=== PATIENT | female | born 1980 | race Caucasian/White ===

== ENCOUNTER → 2019-01-22 11:41 | Outpatient (CLI) | payer BC, SELFPAY ==
--- NOTE | 2019-01-22 12:30 | CT_ITS ---
STUDY: CT ABDOMEN AND PELVIS WITH CONTRAST REASON FOR EXAM: Female, 38 years old. Lower abdominal pain x5 days RADIATION DOSAGE (If Supplied By Facility): CTDIvol = ( 9.89 ) mGy, DLP = ( 289.74 ) mGycm TECHNIQUE: Transaxial images were obtained from the dome of the diaphragm to the symphysis pubis with oral contrast. 100 IV/Oral Isovue 300 was administered. Sagittal and coronal images were reconstructed. Individualized dose optimization techniques were used for this CT. COMPARISON: None. FINDINGS: The visualized lung bases are unremarkable. The visualized portions of the heart are within normal limits. Normal liver. Normal gallbladder and extrahepatic biliary system. Normal spleen. Normal pancreas. Normal bilateral adrenal glands. Normal right kidney. Normal left kidney. Normal visualized stomach. Majority of the small intestine is unremarkable, there is however abnormal thickening of the terminal ileum suggesting a focal colitis. This could be infectious, or inflammatory, Crohn's cannot be excluded. Normal colon. The appendix is visualized and appears normal. Appendix best seen on axial images 60 through 64. Normal abdominal aorta. Normal inferior vena cava. Normal retroperitoneum. Normal urinary bladder. Normal-appearing uterus. Bilateral ovarian cysts are noted, these cannot be accurately evaluated with CT. There is also dependent free fluid in the cul-de-sac Normal abdominal wall. Normal osseous structures. CT/Abdomen/Pelvis WITH Contrast IMPRESSION: Nonspecific thickening of the terminal ileum suggests a focal colitis. Bilateral ovarian cysts, these cannot be accurately evaluated with CT. Consider dedicated pelvic ultrasound for further evaluation there is free fluid in the dependent pelvis Normal appendix visualized. No suspicious solid organ abnormality Electronically Signed: Freddy Kirk MD at 15:22 EDT , Service support ,
[2019-01-22 12:35] LABS: Absolute Lymphocyte Count 1.06 X10^3/ul (0.83-4.51); Eosinophil# 0.05 X10^3/uL; Eosinophils% 0.7 % (0-5); Hematocrit 34.9 % (37-47); Hemoglobin 11.4 g/dl (12.0-15.0); Lymphocyte # 1.06 X10^3/ul (4.0); Lymphocyte % 15.4 % (19-41); Mean Corp Hgb Conc 32.7 g/gl (32-36); Mean Corpuscular Hgb 25.4 pg (27.0-32.0); Mean Corpuscular Volume 77.7 fL (81-99); Mean Platelet Vol. 8.7 fl (6.2-12.0); Monocyte# 0.75 X10^3/uL; Monocyte% 10.9 % (0-10); Neutrophil # 5.01 X10^3/uL (2.7-7.7); Neutrophil % 72.9 % (47-70); Platelet Count 251 K/mm3 (150-450); RBC Distribution Width CV 14.3 % (11.6-14.6); RBC Distribution Width SD 39.7 fl (35.1-43.9); Red Blood Count 4.49 M/mm3 (4.2-5.4); White Blood Count 6.9 K/mm3 (4.4-11.0)
[2019-01-22 12:38] LABS: POSITIVE COUNT NO; POSITIVE DIFFERENTIAL NO; POSITIVE MORPHOLOGY NO
== END ==
PROVIDERS: Family Provider Family Medicine; PCP Family Medicine; Referring Provider Family Medicine; Visit Provider Family Medicine
DX: R10.9 Unspecified abdominal pain (principal)
CPT/HCPCS: 36415; 74177; 85025; Q9967

== ENCOUNTER → 2019-02-26 13:47 | Outpatient (CLI) | payer BC, SELFPAY ==
--- NOTE | 2019-02-26 13:50 | US_ITS ---
STUDY: ULTRASOUND OF THE FEMALE PELVIS - COMPLETE REASON FOR EXAM: Female, 38 years old. Ovarian cysts TECHNIQUE: Transabdominal ultrasound images were obtained of the pelvis TECHNICAL QUALITY: Adequate. COMPARISON: None. FINDINGS: The uterus measures 7.3 x 5.6 x 3.9 cm. Normal uterine cervix. The endometrium measures 9 mm in thickness. There is no demonstrated myometrial mass. The right ovary measures 3.5 x 2.6 x 1.7 cm. There is no right ovarian cyst or ovarian mass visualized. There is no visualized right adnexal mass or complex lesion. There is normal arterial and normal venous vascularity. The left ovary measures 3.6 x 2.7 x 1.7 cm. There is no left ovarian cyst or ovarian mass visualized. There is no visualized left adnexal mass or complex lesion. There is normal arterial and normal venous vascularity. There is no fluid in the cul-de-sac. US/Pelvic (Non ) IMPRESSION: Normal female pelvis. Electronically Signed: Juan J Walsh, at 17:10 EDT Tel , Service support ,
== END ==
PROVIDERS: Family Provider Family Medicine; PCP Family Medicine; Referring Provider Family Medicine; Visit Provider Family Medicine
DX: N83.201 Unspecified ovarian cyst, right side (principal); N83.202 Unspecified ovarian cyst, left side
CPT/HCPCS: 76856

== ENCOUNTER → 2019-04-10 07:22 | Outpatient (CLI) | payer BC, SELFPAY ==
[2019-04-10 10:18] LABS: Erythrocyte Sedimentation Rate 7 mm/hr (0-20)
[2019-04-10 10:20] LABS: Hematocrit 37.9 % (37-47); Mean Corp Hgb Conc 31.7 g/dL (32-36); Mean Corpuscular Hgb 25.6 pg (27.0-32.0); Mean Platelet Vol. 9.4 fl (6.2-12.0); Platelet Count 224 K/mm3 (150-450); RBC Distribution Width SD 41.5 fl (35.1-43.9); Red Blood Count 4.68 M/mm3 (4.2-5.4); White Blood Count 7.6 K/mm3 (4.4-11.0)
[2019-04-10 10:39] LABS: Ferritin 6 ng/mL (8-252); Iron 49 ug/dL (50-170)
== END ==
PROVIDERS: Family Provider Family Medicine; PCP Family Medicine; Referring Provider Internal Medicine Gastroenterology; Visit Provider Internal Medicine Gastroenterology
DX: D50.9 Iron deficiency anemia, unspecified (principal)
CPT/HCPCS: 36415; 82728; 83540; 85027; 85652

== ENCOUNTER → 2019-04-22 08:19 | Outpatient (CLI) | payer BC, SELFPAY ==
--- NOTE | 2019-04-22 08:30 | RAD_ITS ---
PROCEDURE: SMALL BOWEL SERIES DATE OF EXAMINATION: April 22, 2019. INDICATION: Female, 38 years old. Diarrhea/constipation. Abdominal pain and cramping. PHYSICIAN: Ke Cobos M.D. FLUOROSCOPY TIME (if supplied): (0:55) minutes/seconds TECHNIQUE: Radiographic and fluoroscopic images were taken of the small intestine following the ingestion of barium. COMPARISON: None. FINDINGS: A preliminary supine KUB was obtained. There is an unremarkable bowel gas pattern. Fecal material is present throughout the colon. Phleboliths are present within the pelvis. The lung bases are unremarkable. The osseous structures are normal. The patient orally ingested approximately 12 ounces of thin barium Normal visualized fundus, body, and antrum of the stomach. Normal duodenal bulb, C-loop, and proximal jejunum. Normal visualized mucosal folds of the jejunum and ileum. There are no demonstrated dilatations, strictures, or masses of the small intestine. There is no mass displacement of the loops of small intestine. There is a normal motor pattern with barium reaching the colon within approximately extreme minutes. Spot films under fluoroscopic observation demonstrated a normal terminal ileum and ileocecal valve. RAD/Small Bowel Series Only IMPRESSION: Normal small bowel series. Electronically Signed: Ke Cobos, at 9:31 EDT , Service support ,
== END ==
PROVIDERS: Family Provider Family Medicine; PCP Family Medicine; Referring Provider Internal Medicine Gastroenterology; Visit Provider Internal Medicine Gastroenterology
DX: K50.90 Crohn's disease, unspecified, without complications (principal); R19.7 Diarrhea, unspecified
CPT/HCPCS: 74250

== ENCOUNTER → 2019-05-21 14:43 | Outpatient (CLI) | payer BC, SELFPAY ==
[2015-07-10 07:42] VITALS: BMI 20.7
[2019-05-24 03:06] LABS: QNTFERON TB Mitogen Value 6.34 IU/mL (.); QNTFERON TB Nil Value 0.01 IU/mL (.); QNTFERON TB1+ Ag Value 0.01 IU/mL (.); QNTFERON TB2+ Ag Value 0.01 IU/mL (.)
[2019-05-24 12:29] LABS: QNTIFERON TB Positive Criteria Negative (Negative)
== END ==
PROVIDERS: Family Provider Family Medicine; PCP Family Medicine; Referring Provider Internal Medicine Gastroenterology; Visit Provider Internal Medicine Gastroenterology
DX: K50.00 Crohn's disease of small intestine without complications (principal)
CPT/HCPCS: 36415; 86480

== ENCOUNTER → 2019-07-15 13:07 | Outpatient (CLI) | payer BC, SELFPAY ==
--- NOTE | 2019-07-15 13:10 | CT_ITS ---
STUDY: CT ABDOMEN AND PELVIS WITH CONTRAST REASON FOR EXAM: Female, 38 years old. CHRONS, ABD PAIN SINCE JANUARY, DIARRHEA, WEIGHT LOSS. -- X 2, Crohn''s disease RADIATION DOSAGE (If Supplied By Facility): CTDIvol = ( 10.69 ) mGy, DLP = ( 727.64 ) mGycm TECHNIQUE: Transaxial images were obtained from the dome of the diaphragm to the symphysis pubis without oral contrast. 100 ML ISOVUE 300 was administered. Sagittal and coronal images were reconstructed. Individualized dose optimization techniques were used for this CT. COMPARISON: 01/22/2019. FINDINGS: The visualized lung bases are unremarkable. The visualized portions of the heart are within normal limits. Several subcentimeter probable cysts in the liver. Normal gallbladder and extrahepatic biliary system. Normal spleen. Normal pancreas. Normal bilateral adrenal glands. Normal right kidney. Normal left kidney. Normal visualized stomach. Fluid filled small intestine with bowel wall enhancement consistent with patient''s history of Crohn''s disease. Normal colon. The appendix is visualized and appears normal. Normal abdominal aorta. Normal inferior vena cava. Normal retroperitoneum. Normal urinary bladder. Physiologic cyst in the left ovary measuring 2.2 cm. Normal abdominal wall. Unremarkable osseous structures. CT/Abdomen/Pelvis WITH Contrast IMPRESSION: Enhancement of the bowel wall with fluid filled small bowel loops consistent with patient''s history of Crohn''s disease. Several subcentimeter probable hepatic cysts. Physiologic cyst in the left ovary measuring 2.2 cm. No abnormal adenopathy. Electronically Signed: Gomez Giordano MD at 14:06 EST Tel [phone], Service support ,
== END ==
PROVIDERS: Family Provider Family Medicine; PCP Family Medicine; Referring Provider Internal Medicine Gastroenterology; Visit Provider Internal Medicine Gastroenterology
DX: K50.90 Crohn's disease, unspecified, without complications (principal)
CPT/HCPCS: 74177; Q9967

== ENCOUNTER → 2019-11-19 16:05 | Outpatient (CLI) | payer BC, SELFPAY ==
[2015-07-10 07:42] VITALS: BMI 20.7
[2019-11-19 17:34] LABS: Hemoglobin 13.4 g/dL (12.0-15.0); Mean Corp Hgb Conc 34.4 g/dL (32-36); Mean Corpuscular Hgb 30.6 pg (27.0-32.0); Mean Platelet Vol. 9.5 fl (6.2-12.0); Platelet Count 237 K/mm3 (150-450); RBC Distribution Width CV 12.3 % (11.6-14.6); RBC Distribution Width SD 40.5 fl (35.1-43.9); Red Blood Count 4.38 M/mm3 (4.2-5.4); White Blood Count 7.5 K/mm3 (4.4-11.0)
[2019-11-19 17:45] LABS: Erythrocyte Sedimentation Rate 6 mm/hr (0-20)
[2019-11-19 18:11] LABS: AST(SGOT) 18 U/L (15-37); Alanine Aminotransfer ALT/SGPT 21 U/L (13-56); Albumin, Serum 3.8 g/dL (3.2-5.0); Alkaline Phosphatase 50 U/L (45-117); Anion Gap 5 (5-15); BUN 13 mg/dL (7-18); BUN/Creat Ratio 18.7 RATIO (10-20); CRP 3.18 mg/L (0.0-3.0); Chloride 108 mmol/L (98-107); EST Glomerular Filtration Rate 99 mL/min (>60); Est Glom Filt Rate - Afr Amer 119 mL/min (>60); Globulin 3.8 g/dL (2.2-4.2); Glucose 81 mg/dL (74-106); Potassium 3.8 mmol/L (3.5-5.1); Protein, Total 7.6 g/dL (6.4-8.2); Sodium Level 138 mmol/L (136-145)
== END ==
PROVIDERS: PCP Family Medicine; Referring Provider Internal Medicine Gastroenterology; Visit Provider Internal Medicine Gastroenterology
DX: K50.90 Crohn's disease, unspecified, without complications (principal)
CPT/HCPCS: 36415; 80053; 85027; 85652; 86140

== ENCOUNTER → 2020-01-23 | Outpatient (CLI) | payer BC, SELFPAY ==
[2015-07-10 07:42] VITALS: BMI 20.7
[2020-01-28 20:36] LABS: HPV Reflexed? NOT INDICATED
== END | disposition home or self-care (01) ==
LOC: LABSPEC 10:12
PROVIDERS: PCP Family Medicine; Referring Provider Family Medicine; Visit Provider Family Medicine
DX: Z12.4 Encounter for screening for malignant neoplasm of cervix (principal)
CPT/HCPCS: 88175; G0145

== ENCOUNTER → 2020-02-03 15:45 | Outpatient (CLI) | payer BC, SELFPAY ==
--- NOTE | 2020-02-03 15:47 | BI_ITS ---
MAMMOGRAPHY - BILATERAL SCREENING REASON FOR EXAM: Female, 39 years old. Routine annual screening examination. PERTINENT HISTORY: Grandmother with breast cancer. Aunt with breast cancer. TECHNIQUE: Digital bilateral breast sonam (3D mammographic acquisition) in the CC and MLO projections. 2-D mediolateral oblique (MLO) and craniocaudad (CC) views of both breasts were obtained. CAD: Full Field Digital Mammography with Computer Added Detection was performed. COMPARISON: None. Baseline examination. FINDINGS: Breast Composition: The breasts are heterogeneously dense, which may obscure small masses. There are no dominant masses or suspicious calcifications. No other significant abnormalities are identified. BI/SCREEN MAMM (CAD) W/SONAM BILAT IMPRESSION: Negative screening mammogram. Yearly followup mammogram recommended. (A) ASSESSMENT CATEGORY: BIRADS Category 1: Negative. A letter regarding these results will be sent to the patient by the facility within 30 days. Approximately 10% of breast cancers are not detected by mammography. A normal mammogram should not delay biopsy of a clinically suspicious abnormality. [id number] Electronically Signed: Ke Cobos, at 8:15 EDT , Service support ,
== END ==
PROVIDERS: PCP Family Medicine; Referring Provider Family Medicine; Visit Provider Family Medicine
DX: Z12.31 Encounter for screening mammogram for malignant neoplasm of breast (principal); Z80.3 Family history of malignant neoplasm of breast
CPT/HCPCS: 77063; 77067

== ENCOUNTER → 2021-03-11 07:00 | Outpatient (CLI) | payer BC, SELFPAY ==
--- NOTE | 2021-03-11 07:03 | BI_ITS ---
MAMMOGRAPHY - BILATERAL SCREENING REASON FOR EXAM: Female, 40 years old. Routine annual screening examination. PERTINENT HISTORY: Grandmother with breast cancer. Aunt with breast cancer. TECHNIQUE: Digital bilateral breast sonam (3D mammographic acquisition) in the CC and MLO projections. 2-D mediolateral oblique (MLO) and craniocaudad (CC) views of both breasts were obtained. CAD: Full Field Digital Mammography with Computer Added Detection was performed. COMPARISON: Comparison is made with prior study dated 02/03/2020. FINDINGS: Breast Composition: The breasts are heterogeneously dense, which may obscure small masses. There are no dominant masses or suspicious calcifications. No other significant abnormalities are identified. There has been no significant change since the prior study. BI/SCRN MAMM (CAD)W/SONAM BILAT IMPRESSION: Stable bilateral screening mammogram. Yearly follow-up mammogram recommended. (A) ASSESSMENT CATEGORY: BIRADS Category 1: Negative. A letter regarding these results will be sent to the patient by the facility within 30 days. Approximately 10% of breast cancers are not detected by mammography. A normal mammogram should not delay biopsy of a clinically suspicious abnormality. [id number] Electronically Signed: Ke Cobos MD at 8:31 EDT , Service support ,
== END ==
PROVIDERS: PCP Family Medicine; Referring Provider Family Medicine; Visit Provider Family Medicine
DX: Z12.31 Encounter for screening mammogram for malignant neoplasm of breast (principal); Z80.3 Family history of malignant neoplasm of breast
CPT/HCPCS: 77063; 77067

== ENCOUNTER → 2022-03-23 | Outpatient (CLI) | payer BC, SELFPAY ==
--- NOTE | 2022-03-23 14:44 | BI_ITS ---
MAMMOGRAPHY - BILATERAL SCREENING REASON FOR EXAM: Female, 41 years old. Routine annual screening examination. PERTINENT HISTORY: Grandmother with breast cancer. Aunts with breast cancer. TECHNIQUE: Digital bilateral breast sonam (3D mammographic acquisition) in the CC and MLO projections. 2-D mediolateral oblique (MLO) and craniocaudad (CC) views of both breasts were obtained. CAD: Full Field Digital Mammography with Computer Added Detection was performed. COMPARISON: Comparison is made with prior study dated 03/11/2021 and 02/03/2020. FINDINGS: Breast Composition: The breasts are heterogeneously dense, which may obscure small masses. There are no dominant masses or suspicious calcifications. No other significant abnormalities are identified. There has been no significant change since the prior study. BI/SCRN MAMM (CAD)W/SONAM BILAT IMPRESSION: Stable bilateral screening mammogram. Yearly follow-up mammogram recommended. (A) ASSESSMENT CATEGORY: BIRADS Category 1: Negative. A letter regarding these results will be sent to the patient by the facility within 30 days. Approximately 10% of breast cancers are not detected by mammography. A normal mammogram should not delay biopsy of a clinically suspicious abnormality. [id number] Electronically Signed: Ke Cobos MD at 15:24 EDT ,
== END | disposition home or self-care (01) ==
LOC: OPBI 14:40
PROVIDERS: PCP Family Medicine; Visit Provider Family Medicine
DX: Z12.31 Encounter for screening mammogram for malignant neoplasm of breast (principal); Z80.3 Family history of malignant neoplasm of breast
CPT/HCPCS: 77063; 77067

== ENCOUNTER → 2022-12-26 | Outpatient (CLI) | payer BC, SELFPAY ==
[2022-12-26 10:52] LABS: Color, Urine Yellow (Yellow); Glucose, Dipstick Normal (Normal); Ketone-Dipstick Negative (Negative); Leukocyte Esterase-Dipstick Negative /ul (Negative); Nitrite-Dipstick Negative (Negative); Occult Blood-Urine 150 /ul (Negative); Protein-Dipstick Negative (Negative); Urine Bilirubin Dipstick Negative (Negative); Urine Clarity Sl. Cloudy (Clear); Urine Urobilinogen Normal (Normal)
[2022-12-26 11:17] LABS: Absolute Lymphocyte Count 1.12 X10^3/uL (0.83-4.51); Basophil# 0.02 X10^3/uL; Basophil% 0.4 % (0-1); Eosinophil# 0.09 X10^3/uL; Eosinophils% 1.6 % (0-5); Hematocrit 35.4 % (37-47); Hemoglobin 10.8 g/dL (12.0-15.0); Lymphocyte # 1.12 X10^3/ul (0.83-4.51); Lymphocyte % 19.6 % (19-41); Mean Corp Hgb Conc 30.5 g/dL (32-36); Mean Corpuscular Hgb 25.4 pg (27.0-32.0); Mean Corpuscular Volume 83.3 fL (81-99); Mean Platelet Vol. 9.6 fl (6.2-12.0); Monocyte# 0.44 X10^3/uL; Monocyte% 7.7 % (0-10); NRBC Flagged by Analyzer 0 % (0-5); Neutrophil # 4.03 X10^3/uL (2.7-7.7); Neutrophil % 70.5 % (47-70); Platelet Count 269 K/mm3 (150-450); RBC Distribution Width CV 12.4 % (11.6-14.6); RBC Distribution Width SD 37.6 fl (35.1-43.9); Red Blood Count 4.25 M/mm3 (4.2-5.4); White Blood Count 5.7 K/mm3 (4.4-11.0)
== END | disposition home or self-care (01) ==
LOC: MTLAB 07:12
PROVIDERS: PCP Family Medicine; Referring Provider Family Medicine; Visit Provider Family Medicine
DX: N93.9 Abnormal uterine and vaginal bleeding, unspecified (principal)
CPT/HCPCS: 36415; 81002; 85025; 87086; 87088

== ENCOUNTER 2023-04-06 18:51 | Observation (INO) | payer BC, SELFPAY ==
[2023-03-24 14:59] LABS: Hematocrit 36.5 % (37-47); Hemoglobin 11.2 g/dL (12.0-15.0); Mean Corp Hgb Conc 30.7 g/dL (32-36); Mean Corpuscular Hgb 25.5 pg (27.0-32.0); Mean Platelet Vol. 9.3 fl (6.2-12.0); Platelet Count 289 K/mm3 (150-450); RBC Distribution Width CV 14.4 % (11.6-14.6); RBC Distribution Width SD 43.6 fl (35.1-43.9); White Blood Count 7.6 K/mm3 (4.4-11.0)
[2023-03-24 15:17] LABS: Magnesium 2.3 mg/dL (1.6-2.6)
--- NOTE | 2023-03-24 16:38 | PCM.HP.BLA ---
History and Physical Date of Admission: 04/06/23 HPI: The patient is a 42 year old female presenting for pre-operative visit. She is scheduled for total laparoscopic hysterectomy, possible laparotomy for morcellation of uterus or vaginal morcellation and cystoscopy, for uterine fibroids, and heavy menses. Also has some bulk symptoms such as pelvic pressure and bladder pressure, feeling like she cannot empty her bladder completely on 04/06/2023. Procedure discussed along with risks, benefits and complications. Other alternatives discussed for management. Consent form signed? Yes. ? ? PAST MEDICAL HISTORY PAST MEDICAL HISTORY Diagnosis Date ? Abnormal glandular Papanicolaou smear of cervix ? ? Abn. Pap smear (cervix) ? Crohn disease (HCC) ? ? Esophageal reflux ? ? ? PAST SURGICAL HISTORY PAST SURGICAL HISTORY Procedure Laterality Date ? DELIVERY ONLY ? ? ? , low cervical ? CONIZATION CERVIX W/WO D&C RPR ELTRD EXC ? ? ? LEEP-Cervix ? ? ? CURRENT MEDICATIONS Current Outpatient Medications Medication Sig Dispense Refill ? Surgical Lubricant Jelly gel For MRI Female Pelvis, MRI department to provide. Administer intra-vaginal Surgilube immediately prior the MRI procedure (total amount to patient toleranace). 5 g 0 ? STELARA 90 mg/mL injection INJECT 1 SYRINGE SUBCUTANEOUSLY EVERY 8 WEEKS. REFRIGERATE. DO NOT FREEZE. 1 mL 5 ? No current facility-administered medications for this visit. ? ? ALLERGIES: Patient has no known allergies. ? PERSONAL HISTORY: SOCIAL HISTORY Social History ? Tobacco Use ? Smoking status: Never ? Smokeless tobacco: Never Vaping Use ? Vaping Use: Never used Substance Use Topics ? Alcohol use: No ? Drug use: No ? FAMILY HISTORY: FAMILY HISTORY FAMILY HISTORY Problem Relation Age of Onset ? Breast Cancer Maternal Grandmother ? ? Heart Maternal Grandfather ? ? HI ? Hypertension Paternal Grandmother ? ? ? REVIEW OF SYMPTOMS: GENERAL: denies fevers or chills ENDOCRINOLOGY: has not been on steroids Cardiology : denies palpitations or chest pain Respiratory: denies SOB or cough Hematology: denies history of prolonged bleeding or easy bruising or VTE Allergy: Denies history of personal or family history of allergy to anesthesia ? PHYSICAL EXAMINATION: ? VITALS: Blood pressure 122/78, pulse 85, height 5' 0.5 (1.537 m), weight 119 lb (54 kg), last menstrual period 03/03/2023, SpO2 100 %. ? GENERAL: The patient is well nourished, well hydrated in no acute distress. , The patient is oriented to time, place, and person. NECK: Supple. No lynphadenopathy, normal thyroid, no thyromegaly. LUNGS: Clear to auscultation bilaterally. no wheezes, rhonchi or rales HEART: Regular rate and rhythm, Normal heart sounds, and No murmurs or gallops ? EMB completed 03/02/2023 showed secretory phase endometrium with breakdown and endocervical polyp ? Pap on 01/03/2023 is negative with negative high-risk HPV Pelvic US on 01/04/23: Uterus: -Size: 10 x 6.4 x 5.2 cm -Orientation: Anteverted -Endometrial echo complex: Evaluation of the endometrium was adequate. No endometrial abnormality. The endometrial echo complex measured 1 cm. -Cervix: Unremarkable. -Adenomyosis assessment: There are no sonographic findings of adenomyosis. -Fibroids: A few (less than 5) fibroids are present. Index fibroids are detailed below: Fibroid # 1 -Size: 6 x 4.4 x 5.5 cm, previously 2.5 cm -Location: Anterior right body -Type: Subserosal and less than 50% intramural (FIGO 6) -Imaging features: Typical imaging features ? ? IMPRESSION: Intramural uterine leiomyoma, bulk symptoms, menorrhagia, has completed childbearing ? PLAN: The risks/benefits/alternatives and personal involved for the planned TLH with cystoscopy were reviewed with the patient. Her questions were answered to her satisfaction and she desires to proceed. Consent was signed. I reviewed with her postop instructions and expectations. She understands that we may need to do a mini laparotomy to morcellate the uterus from her abdomen or may morcellate vaginally. We discussed risks and benefits of this, including the possibility that there may be an underlying uterine malignancy that is not detected by current imaging or biopsy. Patient is comfortable with this plan. Discussed with her if unable to complete the history of laparoscopically may need to do a Pfannenstiel skin incision and she is comfortable with this ? ? I have reviewed and updated past medical and surgical history, medications and allergies Assessment & Plan Assessment/Plan (1) Uterine fibroid: (2) Menorrhagia:
[2023-04-06] VITALS (20 sets, daily range): BP systolic 81–133; BP diastolic 46–88; PULSE 56–100; RESP 16; TEMP 36.5–36.9; O2SAT 93–100; BMI 22.6
--- NOTE | 2023-04-06 | HYST_PTH ---
PATIENT: DENISE BYRNES LOC: [facility] U#:[id number] AGE/SX: 42/F ROOM: [facility]321 RE04/06/[address]: Dr. Kristen Johnson MD : 1980 BED: 1 DIS: 04/07/2023 SPEC #: [id number] RECD: 04/06/23 14:45 STATUS: STEPHEN RYAN #: [id number] VAUGHN: 04/06/23 00:[address]: Kristen Johnson DEPT: SURGICAL PATHOLOGY RECD BY: Hugh Carrasco ENTERED: 04/07/23 08:56 SP TYPE: HYSTERECT OTHR DR: Dr. Jessica Roberson MD Tissues: Uterus, NOS Procedures: Surgery Specimen Level V HEADER OPERATION: ERAS, total laparoscopic hysterectomy, bilateral salpingectomy PRE-OP DIAGNOSIS: Uterine fibroid, menorrhagia TISSUE SUBMITTED: Uterus, cervix, bilateral fallopian tubes MICROSCOPIC DIAGNOSIS Uterus, cervix, bilateral fallopian tubes, hysterectomy and bilateral salpingectomy: Cervix - chronic cystic cervicitis. Endometrium - proliferative endometrium. Myometrium - intramural leiomyoma (6.0 cm in diameter). Bilateral fallopian tubes - no pathologic diagnosis. SJ:osfia 04/10/2023 MICROSCOPIC DESCRIPTION Slides are reviewed. GROSS DESCRIPTION Received in fixative is one container labeled with the patient's name and designated uterus, cervix, bilateral fallopian tubes. The specimen consists of a hysterectomy specimen consisting of previously opened uterus with cervix and detached bilateral fallopian tubes. The uterus with cervix weighs 173 gm and measures 10.0 x 8.0 x 5.0 cm. The serosal surface is resendiz, glistening. The ectocervical mucosa is unremarkable. The external os contour cannot be assessed due to previously opened uterus. The specimen cannot be oriented properly as it is previously opened and distorted. The endocervical canal measures 3.5 cm in length and the endocervical mucosa is unremarkable. It is partially denuded. The endometrial cavity is compressed to some side and measures 5.0 cm in length and up to 1.5 cm in width. The endometrium measures 1.0 cm in thickness. Sections of the uterine wall reveal a large nodular mass measuring 6.0 cm in diameter. Sections of this mass reveals resendiz whorled cut surfaces without areas of hemorrhage, necrosis or cystic degeneration. The uninvolved uterine wall measures up to 2.5 cm in thickness. The fallopian tubes are not identified as right or left. One fallopian tube measures 5.0 cm in length and up to 0.8 cm in diameter. The fimbrial end is identified. Sections reveal unremarkable cut surfaces. The second fallopian tube is received in multiple pieces. The proximal portion measures 4.0 cm in length and 0.5 cm in diameter. Detached pieces of fimbrial end are present measuring in aggregate 2.0 x 1.5 x 0.5 cm. Sections reveal unremarkable cut surfaces. Cryptologic Supervisor sections are submitted in ten cassettes as follows: 1 & 2 - cervix, 3-6 - anterior and posterior uterine wall, 7 & 8 - nodular mass, 9 - one fallopian tube, 10 - second fallopian tube received in multiple pieces. / SJ:rg 04/07/2023 TC:1 CPT: 17748
[2023-04-06 07:26] LABS: Internal QC Validated? YES +Cl - CLEAR BKGD; Pregnancy, Urine Negative Negative; Record Kit Lot#,Urine Preg HCG0000667200
[2023-04-06] MEDS: Lactated Ringers 1,000 ML 40 ML IV ×3 (07:49→20:31)
[2023-04-06] MEDS: Magnesium 1 GM over 15 mins IV (07:50)
[2023-04-06] MEDS: Scopolamine 1mg/72hr Patch 1 PATCH TD (07:50)
[2023-04-06] MEDS: Gabapentin 600 MG Tablet PO (07:51)
[2023-04-06] MEDS: Enoxaparin 40 MG/0.4 ML Syringe SC (07:51)
[2023-04-06] MEDS: Acetaminophen 500 MG Tablet 1000 MG PO (07:51)
[2023-04-06 09:00] LABS: Bedside Glucose 107 mg/dL (74-106)
[2023-04-06] MEDS: Cefazolin 2 GM in 0.9% Normal Saline (100mL Bag) 100 ML IV (09:08)
[2023-04-06] MEDS: dexAMETHasone 4 MG/ML Vial 8 MG IV (09:13)
[2023-04-06] MEDS: Bupivacaine 0.25% 30 ML Vial (09:13)
[2023-04-06] MEDS: Lubricating Jelly 60 GM Tube 30 GM (09:31)
[2023-04-06] MEDS: Ondansetron 4 MG/2 ML Vial IV (11:15)
--- NOTE | 2023-04-06 11:24 | OP.PCM_ITS ---
Problems Associated Problem List Diagnoses (1) Menorrhagia: (2) Uterine fibroid: (3) Adenomyosis: Report of Operation Date of Procedure: 04/06/23 Pre-Operative Diagnosis: menorrhagia, uterine fibroid Post-Operative Diagnosis: same + adenomyosis Surgery/Procedure Performed:: TLH, bilateral salpingectomy and cystoscopy Description of Surgical Findings:: enlarged boggy uterus with large anterior fibroid, normal cervix and vagina Surgeon: Kristen Johnson domestic violence counselor: Mirela George domestic violence counselor: Brian MS3 Type of Anesthesia: General Anesthesiologist: Milan Swain Special Medications: none Specimen's removed: uterus, cervix, bilateral fallopian tubes uterine weight was 284 g Drains: page Estimated Blood Loss (mL): 100 Fluids Replaced: 1700 Description of Procedure: The patient was taken to the operating room where she was prepped and draped in the dorsal lithotomy position. Her arms were tucked to the side and padded and her legs were placed in the yellowfin stirrups. Care was taken to ensure that she was placed in a neurologically safe and neutral position. A weighted s peculum was placed in the vagina and the anterior lip of the cervix was grasped with a single-tooth tenaculum. The cervix sounded to 9 centimeters. 2-0 Vicryl sutures were secured to the cervix at 3 and 9:00. The 3 cm uterine silverware supervisor was placed into the cervix and the balloon inflated. The stay sutures were placed through the cup and secured down to the cervix. Once the V-Care was secured to the cervix the Page catheter was placed to straight drain. Attention was turned to the abdominal portion of the case. Before skin incisions were made they were infiltrated with 0.5% Marcaine solution for local anesthetic. An OG tube was in place. A 5 mm supraumbilical incision was made and while tenting the anterior abdominal wall up with towel clamps a 5 mm blade less trocar and sleeve were advanced directly into the peritoneal cavity using the Visiport. Peritoneal placement was confirmed with the laparoscope the pneumoperitoneum was created, and the underlying abdominal contents were intact. The patient was placed in Trendelenburg and the above findings were noted. Right and left lateral 5 mm trochars were placed under direct visualization without difficulty. The antimesenteric portion of the tube was clamped sealed and transected serially on both sides with the LigaSure device. The round ligaments were clamped sealed and transected and a window was made in the peritoneum. The utero-ovarian ligaments were then clamped sealed and transected with the LigaSure device and the pedicles were hemostatic The bladder flap was dissected down with the LigaSure device and blunt dissection and the uterine arteries were then skeletonized. The uterine arteries were clamped sealed and transected on both sides with the LigaSure device. Then along the cardinal ligament uterine arteries adjacent to the cervix were clamped sealed and transected with the LigaSure device to move them away from the vaginal cuff angle. At this point the pedicles were all examined and found to be hemostatic. Because of the size of the uterus and bulk there was some difficulty manipulating it. Dr. Gottlieb help provide uterine manipulation and visualization during the case. The case took 30 additional minutes because of the bulk of the uterus and difficulty manipulating it during the case especially during colpotomy incision. The bladder flap was rechecked and found to be adequately down. The monopolar tip of the LigaSure device was then used to enter the anterior vagina. The vaginal manipulator cup was noted in the vaginal colpotomy incision was made circumferentially around the cup. When the 3 and 9:00 positions of the cervicovaginal junction were reached these were clamped sealed and transected with the LigaSure device to secure any small remaining vessels. At this point the pedicles were hemostatic from above and attention was turned to the vaginal portion of the case again. Because of the bulk of the uterus the uterus was bivalved. The right side of the uterus was then pushed back in and we are able to use clamps to bring the uterus down to the vaginal incision. Using Leila clamps wearable to grasp the fibroid. The uterus was then brought out in 1 piece but was bivalved. Again this took up 12 extra minutes to bivalve and manipulate the uterus to bring it out from below. There is some bleeding from the right vaginal cuff angle and this was grasped w ith an Allis clamp. Vaginal angle sutures were placed on both sides with 0 Vicryl sutures and care was taken to ensure that the uterosacral ligament was secured into this stitch. A 2-0 PDS was used to do a modified Fontana's suture through the posterior cul-de-sac reefed across to the right uterosacral back across to the left and back out through the midline of the vagina. The remainder the vagina was then closed horizontally with interrupted 0 Vicryl sutures. The PDS suture was then tied down. The cuff was hemostatic vaginally. The Page catheter was removed and a cystoscopy was performed. The bladder appeared normal and was intact. Both ureteral orifices were noted and both ureteral jets were seen. The cystoscope was removed and the Page catheter was placed back to straight drain. A sponge stick was placed in the vagina to help place traction against the vaginal cuff and the pneumoperitoneum was re-created. The suction battery assembler plastic was used to remove any blood and clots from the peritoneal cavity. The pedicles were reexamined and found to be hemostatic. The vaginal cuff was hemostatic. Some Rabia was placed over the cuff and the pedicles and no active bleeding was noted through the Rabia. The right and left lateral ports were taken out and the sites were hemostatic. The pneumoperitoneum was released and even under low pressure there was no bleeding of any of the pedicles are vaginal cuff. The trocars were removed The umbilical skin incisions were closed with Monocryl suture and skin glue by Dr. Gottlieb. The vaginal instruments were removed by me and a vaginal sweep was completed by me. The surgery was performed by me with assistance other than the portions dictated as above. There were no qualified residents available for this procedure. All sponge lap and needle counts were correct and the patient was transferred to the recovery room in stable condition. Grafts/Implants Used: none Procedure Start Time: 09:32 Procedure Stop Time: 11:31 Complications none Admit VTE Documentation VTE Present on Admission: No VTE Mechan Device Prophylaxis: [facility] Prophylaxis ordered?: Yes
--- NOTE | 2023-04-06 11:34 | PCM.DC ---
Discharge Instructions Diet Discharge Diet: No restrictions Activity Discharge Activity: May Not Drive (for 5-7 days or until you are not on pain medication) May shower in (days): 1 May resume sexual activity in: 6-8 weeks Dressing / Incision Call your doctor if your incision/area has: Sudden Increased Bleeding, Increased Pain/ Swelling and Foul Smelling Discharge Call your doctor if you observe: Fever of 101 or Higher, Inability to urinate and Using more than 1 pad per hour Cleanse incision/area with: Soap & Water Additional Dressing/Incision Instructions:: Your incisions have skin glue. It can get wet. Please leave it on for at least 10 days. You can trim the edges with nail clippers if they start to peel up Follow Up Care Please Follow Up With: Kristen Johnson MD When: 1-2 weeks or as needed. Call the office or send a [employer] message for non urgent questions Test Results: Test results from this visit will be discussed in further detail at your follow-up appointment, if applicable. Discharge Plan Admission Attending Provider: Kristen Johnson Primary Care Provider: Jessica Roberson Discharge Orders/Prescriptions Prescriptions: No Action Stelara 90 mg/mL syringe 90 mg SUBCUT .[id number] Referrals / Follow Up: Jessica Roberson MD [Primary Care Provider] - Disposition Disposition (needs filled in before D/C Order can be placed): Home, Self Care
[2023-04-06] MEDS: Lactated Ringers 1,000 ML 75 ML IV (12:37)
--- NOTE | 2023-04-06 12:40 | SUR.PHASEI ---
AT APPROXIMATELY 12:12, MONITOR SHOWS SINUS RHYTHM/SINUS BRADYCARDIA RATE DOWN TO 30s WITH JUNCTIONAL BEATS AND PVCs IN BIGEMINAL PATTERN. HAVING DIFFICULTY GETTING A PULSE OX READING. O2 ON AT 4L/NC. NO READING SEEN FOR PCO2 ON MONITOR. HAS A PALPABLE RADIAL PULSE. UNRESPONSIVE TO DEEP PAIN. RESPIRATIONS ARE SHALLOW. DR MARQUEZ AND Ying CLEMENTE TACKER OFF TO BEDSIDE IMMEDIATELY. BREATHS DELIVERED VIA BAG VALVE MASK / AT 15L/MIN
--- NOTE | 2023-04-06 12:48 | SUR.PHASEI ---
AT 12:20 NARCAN 0.1 MG IV GIVEN PER ORDER OF DR CARO. IN APPROXIMATELY 10 MIN, PATIENT BECAME RESPONSIVE WITH SPONTANEOUS RESPIRATIONS. MONITOR SHOWS SINUS RHYTHM IN THE 70s. NO ECTOPY. PCO2 = 38 WITH O2 AT 4L/NC. AROUSABLE, BUT DROWSY.
[2023-04-06 15:50] LABS: Absolute Lymphocyte Count 0.32 X10^3/uL (0.83-4.51); Basophil# 0.01 X10^3/uL; Basophil% 0.1 % (0-1); Hematocrit 31.6 % (37-47); Hemoglobin 9.9 g/dL (12.0-15.0); Lymphocyte # 0.32 X10^3/ul (0.83-4.51); Lymphocyte % 2.7 % (19-41); Mean Corp Hgb Conc 31.3 g/dL (32-36); Mean Corpuscular Hgb 26.7 pg (27.0-32.0); Mean Corpuscular Volume 85.2 fL (81-99); Mean Platelet Vol. 8.8 fl (6.2-12.0); Monocyte# 0.35 X10^3/uL; NRBC Flagged by Analyzer 0 % (0-5); Neutrophil # 10.96 X10^3/uL (2.7-7.7); Neutrophil % 93.8 % (47-70); POSITIVE DIFFERENTIAL YES; Platelet Count 222 K/mm3 (150-450); RBC Distribution Width CV 14.7 % (11.6-14.6); RBC Distribution Width SD 45.5 fl (35.1-43.9); Red Blood Count 3.71 M/mm3 (4.2-5.4); White Blood Count 11.7 K/mm3 (4.4-11.0)
[2023-04-06 15:57] LABS: Differential Indicated SCAN CRITERIA MET
[2023-04-06 16:19] LABS: Platelet Estimate ADEQUATE (ADEQ); Red Cell Morphology N CHROM NORMAL (NORM C&C)
[2023-04-06 16:20] LABS: Pathologist Review May foll
--- NOTE | 2023-04-06 16:20 | SUR.PHASEII ---
CALLED DR ELIZABETH TO UPDATED RE: LABS AND VS. PT WAS UP TO BATHROOM, MODERATE AMT OF BLEEDING ON PAD AND BED. PT PAD AND GREEN CHUX CHANGED. MESH UNDIES ON. PT WAS UNABLE TO VOID. PER DR NAVAS, CALL BACK IN 1 HR WITH ANOTHER UPDATE. CONT PLAN OF CARE.
--- NOTE | 2023-04-06 17:26 | SUR.PHASEII ---
UPDATED DR NAVAS ON PATIENT STATUS, HAS NOT BEEN ABLE TO VOID, BLADDER SCAN SHOWS 152ML, PAIN TOLERABLE AT THIS TIME. DR ELIZABETH STATES THAT IF PATIENT CAN VOID IN 1 HOUR THEN SHE CAN GO HOME. IF CAN NOT VOID IN 1 HOUR CALL WITH UPDATE.
[2023-04-06] MEDS: Oxycodone/Apap 5/325 Tablet PO (18:46)
--- NOTE | 2023-04-06 18:49 | SUR.PHASEII ---
DR NAVAS UPDATED THAT PATIENT HAS STILL NOT BEEN ABLE TO URINATE. ORDERS GIVEN TO ADMIT PATIENT TO OBSERVATION, PHAM CATHETER, AND REGULAR DIET. DR NAVAS STATES SHE SARAY HAVE ROULETTE DEALER PUT IN FURTHER ORDERS.
[2023-04-07 04:32] VITALS: BP 118/80; PULSE 95; RESP 18; TEMP 36.7; O2SAT 99
[2023-04-07] MEDS: Ketorolac 15 MG/ML Vial IV (04:38)
[2023-04-07] MEDS: 0.9% Saline Lock 10 ML Syringe IV ×2 (04:39→11:59)
[2023-04-07] MEDS: Oxycodone/Apap 5/325 Tablet PO ×2 (06:52→13:16)
[2023-04-07 07:28] LABS: Absolute Lymphocyte Count 1.09 X10^3/uL (0.83-4.51); Absolute Neutrophil Count 9.8 X10^3/uL (2.0-7.7); Basophil# 0.02 X10^3/uL; Basophil% 0.2 % (0-1); Eosinophil# 0.01 X10^3/uL; Eosinophils% 0.1 % (0-5); Hematocrit 29.9 % (37-47); Hemoglobin 9.1 g/dL (12.0-15.0); Lymphocyte # 1.09 X10^3/ul (0.83-4.51); Lymphocyte % 9.1 % (19-41); Mean Corp Hgb Conc 30.4 g/dL (32-36); Mean Corpuscular Hgb 26.3 pg (27.0-32.0); Mean Corpuscular Volume 86.4 fL (81-99); Mean Platelet Vol. 9.2 fl (6.2-12.0); Monocyte# 1.04 X10^3/uL; Monocyte% 8.7 % (0-10); NRBC Flagged by Analyzer 0 % (0-5); Neutrophil # 9.76 X10^3/uL (2.7-7.7); Neutrophil % 81.5 % (47-70); Platelet Count 241 K/mm3 (150-450); RBC Distribution Width CV 15.1 % (11.6-14.6); RBC Distribution Width SD 47.4 fl (35.1-43.9); Red Blood Count 3.46 M/mm3 (4.2-5.4)
--- NOTE | 2023-04-07 08:36 | PN.OBGYN_ITS ---
Subjective Subjective Patient complaining of some pain especially upper abdomen. No nausea or vomiting. Had some Jell-O this morning. Godoy catheter out but has not been up to void yet. Denies any shortness of breath, palpitations lightheaded or dizziness. Objective Data Objective Data Vital Signs: Vital Signs Temp Pulse Resp BP Pulse Ox O2 Del Method O2 Flow Rate 98.1 F 95 18 118/80 99 Room Air 4 04/07/23 04:04/07/23 04:04/07/23 04:04/07/23 04:04/07/23 04:04/07/23 04:04/06/23 13:45 Oxygen Flow Rate (L/min) 4 Oxygen Delivery Method Room Air Weight: 54.4 kg Body Mass Index (BMI) 22.6 Intake & Output: Intake and Output for Last 24 Hours 04/05/23 04/06/23 04/07/23 23:59 23:59 23:59 Intake Total 3890.75 / 3890.75 100 / 100 Output Total 2100 / 2100 650 / 650 Balance 1790.75 / 1790.75 -550 / -550 Lab / Micro Data 04/07/23 06:56 Labs: Laboratory Results - last 24 hr 04/06/23 07:45: POC Glucose 107 H 04/06/23 15:35: WBC 11.7 H, RBC 3.71 L, Hgb 9.9 L, Hct 31.6 L, MCV 85.2, MCH 26.7 L, MCHC 31.3 L, RDW Std Deviation 45.5 H, RDW Coeff of Tata 14.7 H, Plt Count 222, MPV 8.8, Immature Gran % (Auto) 0.400, Neut % (Auto) 93.8 H, Lymph % (Auto) 2.7 L, Porter % (Auto) 3.0, Eos % (Auto) 0.0, Baso % (Auto) 0.1, Absolute Neuts (auto) 11.0 H, Absolute Lymphs (auto) 0.32 L, Nucleated RBC % 0, Differential Comment SEE COMMENT, Diff Path Review November, Platelet Estimate ADEQUATE, RBC Morphology N CHROM 04/07/23 06:56: WBC 12.0 H, RBC 3.46 L, Hgb 9.1 L, Hct 29.9 L, MCV 86.4, MCH 26.3 L, MCHC 30.4 L, RDW Std Deviation 47.4 H, RDW Coeff of Tata 15.1 H, Plt Count 241, MPV 9.2, Immature Gran % (Auto) 0.400, Neut % (Auto) 81.5 H, Lymph % (Auto) 9.1 L, Porter % (Auto) 8.7, Eos % (Auto) 0.1, Baso % (Auto) 0.2, Absolute Neuts (auto) 9.8 H, Absolute Lymphs (auto) 1.09, Nucleated RBC % 0 Physical Exam Narrative Awake, alert, no acute distress Incisions are clean dry and intact Abdomen is mildly distended, some voluntary guarding, no rebound. Small amount of dark blood on her kayla-pad Assessment & Plan (1) Postoperative pain: PLAN: Postoperative day #1 status post total laparoscopic hysterectomy with bilateral salpingectomy and cystoscopy. Patient is doing well overall. Was unable to void last night. Had a large amount of urine output overnight. Vitals are stable. Hemoglobin is appropriate for blood loss during surgery and dilution from fluids she still at least 1.5 L head from yesterday. Recheck CBC around 11. If patient able to void and is comfortable going home and hemoglobin is stable she can be discharged home around lunchtime today
[2023-04-07 08:57] VITALS: BP 131/86; PULSE 90; RESP 16; TEMP 36.6; O2SAT 100
--- NOTE | 2023-04-07 08:59 | NURSING ---
pt was dangling at side of bed, went to restroom, voided 50cc, bright red, pt then went for a walk with , pt offered pain medicine for pain of a 4-5/10, pt refused pain meds at this time.
[2023-04-07 11:07] LABS: Hematocrit 30.6 % (37-47); Hemoglobin 9.3 g/dL (12.0-15.0); Mean Corp Hgb Conc 30.4 g/dL (32-36); Mean Corpuscular Hgb 26.5 pg (27.0-32.0); Mean Corpuscular Volume 87.2 fL (81-99); Mean Platelet Vol. 9.2 fl (6.2-12.0); Platelet Count 229 K/mm3 (150-450); RBC Distribution Width CV 15.2 % (11.6-14.6); RBC Distribution Width SD 48.5 fl (35.1-43.9); Red Blood Count 3.51 M/mm3 (4.2-5.4); White Blood Count 12.3 K/mm3 (4.4-11.0)
[2023-04-07] MEDS: Ketorolac 30 MG/ML Syringe 15 MG IV (11:58)
== END 2023-04-07 13:50 | disposition home or self-care (01) ==
LOC: MS3 19:06 → SDC 19:06 → MS3 19:06
PROVIDERS: Advanced Practice Midwife; Admitting Provider Obstetrics & Gynecology; PCP Family Medicine; Referring Provider Obstetrics & Gynecology; Visit Provider Obstetrics & Gynecology
PROC: 0UT94ZZ Resection of Uterus, Percutaneous Endoscopic Approach (ICD-10-PCS; CPT 58554; principal; 2023-04-06 08:35)
DX: D25.1 Intramural leiomyoma of uterus (principal); K50.90 Crohn's disease, unspecified, without complications; N92.0 Excessive and frequent menstruation with regular cycle; N80.03 Adenomyosis of the uterus; K21.9 Gastro-esophageal reflux disease without esophagitis; Z79.899 Other long term (current) drug therapy
CPT/HCPCS: 58554; 00840; 36415; 81025; 82962; 83735; 85025; 85027; 86850; 86900; 86901; 88307; 96374; 96376; 99221; J7120; A4216; G0378; J2310; J2405; J3475